=== PATIENT | male | born 1980 | race Caucasian/White ===

== ENCOUNTER 2017-10-25 17:59 | Emergency (ER) | payer OTHER ==
[~2017-10-25] VITALS: Ht 188 cm; Wt 104.3 kg
[2017-10-25] MEDS ORDERED: SILVER NITRATE-POTAS NITRA STICK TOP ONE (18:15)
[2017-10-25] MEDS ORDERED: SILVER SULFADIAZINE 1 % TOPICAL CREAM 50GM TOP ONE (18:30)
[2017-10-25 18:47] VITALS: BP 138/80
== END 2017-10-25 19:49 | disposition home or self-care (01) ==
LOC: ER 17:59
DX: T20.211A Burn of second degree of right ear [any part, except ear drum], initial encounter (principal); T31.0 Burns involving less than 10% of body surface; X08.8XXA Exposure to other specified smoke, fire and flames, initial encounter; Y93.89 Activity, other specified; Y92.89 Other specified places as the place of occurrence of the external cause; Y99.8 Other external cause status
CPT/HCPCS: 16020